=== PATIENT | male | born 1950 | race Caucasian/White ===

== ENCOUNTER 2020-12-12 11:18 | Emergency (ER) | payer OTHER, SELFPAY ==
[2020-12-12 11:22] VITALS: BP 154/88; PULSE 68; RESP 18; TEMP 36.4; O2SAT 99
--- NOTE | 2020-12-12 11:30 | DI.RAD.S_ITS ---
PROCEDURE: XR SHOULDER RT MIN 2V INDICATIONS: pain w/ movement and at rest. TECHNIQUE: 3 views of the shoulder were acquired. COMPARISON: None. FINDINGS: Bones: No fractures or dislocations. No suspicious bony lesions. Visualized ribs appear intact. Soft tissues: No suspicious soft tissue calcifications medially but there is a curvilinear calcification of significant size in the expected position of the lateral bursal space and lateral supraspinatus tendon at the right shoulder.. IMPRESSION: Calcific bursitis appears present, versus calcific tendonitis, at the lateral supraspinatus region of the right shoulder, upper-outer border of humeral head. The calcification of concern measures up to 2.6 cm oblique transverse and approximately 8-9 mm in thickness. Dictated by: Hussein Mccray M.D. on 12/12/2020 at 11:57 Approved by: Hussein Mccray M.D. on 12/12/2020 at 11:59
--- NOTE | 2020-12-12 12:57 | ED_ITS ---
HPI - Extremity Injury (Upper) <THELMA Lemus - Last Filed: 12/12/20 19:50> General Chief Complaint: Extremity Injury, Upper Stated Complaint: suspects torn muscles in right shoulder Time Seen by Provider: 12/12/20 12:04 Source: patient Mode of arrival: Ambulatory Limitations: no limitations History of Present Illness HPI narrative: This is a 70-year-old male, nonsmoker, has contributory medical history with same shoulder impingement presents to ED with right anterior shoulder joint pain radiating down to axilla which gradually started on Saturday evening and became worse on Saturday. Patient reports he had over work prior the pain before the pain started this past weekend. Patient was vacuumed and had carpet cleaned. He also went out riding motorcycle. He mowed the lawn and had difficult time starting a mower and had to pulled the starter cord several times. Patient initially used heat without improvement. Yesterday he had use cool pack which initially helped but became more painful. Patient had used ibuprofen and Tylenol for pain. Patient had use shoulder immobilizer that patient has at home. Pain increases with any movements of the right arm. Denies decreased sensation or weakness of affected arm. Related Data Previous Rx's Medication Instructions Recorded lidocaine 1 patch TOPICAL DAILY PRN #30 ea 12/12/20 Allergies Allergy/AdvReac Type Severity Reaction Status Date / Time No Known Drug Allergies Allergy Verified 12/12/20 11:27 Review of Systems <THELMA Lemus - Last Filed: 12/12/20 19:50> Review of Systems Narrative: General: Denies fever, chills, fatigue, malaise, sweats. Respiratory: Denies dyspnea, cough, wheezing, hemoptysis, sputum. Cardiovascular: Denies chest pain, palpitations, orthopnea, edema. Gastrointestinal: Denies nausea, vomiting, abdominal pain, diarrhea, constipation, melena. Musculoskeletal: See HPI Skin: Denies rash, skin lesions, or other. Neurologic: Denies weakness, headache, numbness, change in speech, confusion, seizures, incoordination. Patient History <THELMA Lemus - Last Filed: 12/12/20 19:50> Social History Smoking Status: Never smoker Smoking Status: Never smoker alcohol intake frequency: 0-2 drinks per day Substance Use Type: does not use Exam <THELMA Lemus - Last Filed: 12/12/20 19:50> Narrative Exam Narrative: General appearance: well developed, well nourished, in no acute distress. Head: normocephalic, atraumatic, no scalp lesions, non-tender. ENT: Hearing grossly intact. Airway patent. Neck/Thyroid: neck supple, full range of motion, no visible masses or meningeal signs. No JVD, non-tender without lymphadenopathy. Skin: no suspicious rashes, lesions over visible areas. Warm and dry and appropriate color for ethnicity. Heart: no clubbing, no cyanosis, no edema. Lungs: Breathing even and unlabored. No stridor. No accessory muscles used. Able to speak in full sentences. Chest: normal shape and expansion. Abdomen: non-obese, non-distended. Neurologic: alert and oriented. Cognitive exam, [employer] and PNS grossly intact on informal exam. Psych: good eye contact, normal affect. Initial Vital Signs Initial Vital Signs: Vital Signs Temperature 97.6 F 12/12/20 11:22 Pulse Rate 68 12/12/20 11:22 Respiratory Rate 18 12/12/20 11:22 Blood Pressure 154/88 H 12/12/20 11:22 Pulse Oximetry 99 12/12/20 11:22 Extrem Right upper extremity: normal to inspection, no joint enlargement, shoulder/upper arm Details: tenderness Location: of the A-C joint, axillary nerve sensory function normal and abnormal ROM Details: pain with active ROM and pain with passive ROM; no swelling, no lacerations, no ecchymosis, no deformity and no unusual warmth and elbow/forearm Details: normal to inspection and normal ROM; no tenderness and no swelling Other: Normal deltoid muscle location and in size when compared to left arm <Bere Ferrell DO - Last Filed: 12/13/20 07:53> Initial Vital Signs Initial Vital Signs: Vital Signs Temperature 97.6 F 12/12/20 11:22 Pulse Rate 68 12/12/20 11:22 Respiratory Rate 18 12/12/20 11:22 Blood Pressure 154/88 H 12/12/20 11:22 Pulse Oximetry 99 12/12/20 11:22 Scores <ANITRA LemusP - Last Filed: 12/12/20 19:50> GCS Shruti coma scale eye opening: Spontaneous [place] coma scale verbal response: Orientated [place] coma scale motor response: Obey commands Shruti coma scale total score: 15 Course <ANITRA LemusP - Last Filed: 12/12/20 19:50> Orders Ordered: Discontinued Medications Ketorolac Tromethamine (Ketorolac 60 Mg/2 Ml Vial) 30 mg IM NOW ONE Stop: 12/12/20 12:57 Last Admin: 12/12/20 13:09 Dose: 30 mg Documented by: RUBÉN Lidocaine (Lidocaine Patch 1 Each Adh..Patch) 1 each TOP NOW ONE Stop: 12/12/20 12:57 Last Admin: 12/12/20 13:09 Dose: 1 each Documented by: RUBÉN Vital Signs Vital signs: Vital Signs - 8 hr 12/12/20 11:22 Temperature 97.6 F Pulse Rate 68 Respiratory Rate 18 Blood Pressure 154/88 H Pulse Oximetry 99 <Bere Ferrell DO - Last Filed: 12/13/20 07:53> Orders Ordered: Discontinued Medications Ketorolac Tromethamine (Ketorolac 60 Mg/2 Ml Vial) 30 mg IM NOW ONE Stop: 12/12/20 12:57 Last Admin: 12/12/20 13:09 Dose: 30 mg Documented by: RUBÉN Lidocaine (Lidocaine Patch 1 Each Adh..Patch) 1 each TOP NOW ONE Stop: 12/12/20 12:57 Last Admin: 12/12/20 13:09 Dose: 1 each Documented by: RUBÉN Vital Signs Vital signs: Vital Signs - 8 hr 12/12/20 11:22 Temperature 97.6 F Pulse Rate 68 Respiratory Rate 18 Blood Pressure 154/88 H Pulse Oximetry 99 MDM - Extremity Injury (Upper) <THELMA Lemus - Last Filed: 12/12/20 19:50> Differential Diagnosis Differential diagnosis: Likely other (shoulder impingement, bursitis) Medical Records Attestation: I reviewed the patient's medical records. Imaging Data XR-Shoulder RT: Radiologist's Impression: [address] [id number] ReportSigned Patient: Petr Rodriguez GMR#: [id number]: 1950cct:[id number]/Sex: 70 / MDate of Service: 12/12/20Loc: EDAccession Number: [id number] Procedure: XR shoulder RT min 2V Ordering Provider: Bere Ferrell D.O. PROCEDURE: XR SHOULDER RT MIN 2V INDICATIONS: pain w/ movement and at rest. TECHNIQUE: 3 views of the shoulder were acquired. COMPARISON: None. FINDINGS: Bones: No fractures or dislocations. No suspicious bony lesions. Visualized ribs appear intact. Soft tissues: No suspicious soft tissue calcifications medially but there is a curvilinear calcification of significant size in the expected position of the lateral bursal space and lateral supraspinatus tendon at the right shoulder.. IMPRESSION: Calcific bursitis appears present, versus calcific tendonitis, at the lateral supraspinatus region of the right shoulder, upper-outer border of humeral head. The calcification of concern measures up to 2.6 cm oblique transverse and approximately 8-9 mm in thickness. Dictated by: Hussein Mccray M.D. on 12/12/2020 at 11:57 Approved by: Hussein Mccray M.D. on 12/12/2020 at 11:59 MDM Narrative Medical decision making narrative: This is a 70-year-old gentleman who presents to ED with chief complain of right anterior shoulder pain radiating down to axilla for last 2-3 days which came on gradually after he overused by carpet cleaning, mowing the lawn and riding a motor cycle this weekend prior to onset of pain. Patient has intact sensation and distal pulses. Patient has limited active and passive range of motion due to discomfort. There is no rash, warmth, swelling around the joint. Xray test indicates calcific bursitis versus calcific tendinitis at the lateral supra supination is region of the right shoulder, upper outer border of humeral head. I discussed the findings with the patient and spouse. Advised rest for next a few days and use NSAIDS and Tylenol, Lidocaine patch, Volterene gel if elects to use topical instead of PO NSAIDS. Patient informed it is okay to use shoulder immobilizer for acute painful but advised to gentle stretching and exercise several times a day to prevent frozen shoulder. Return precautions discussed with patient and he carlitos balized understanding and agreement with the treatment plan. Discharge Plan Departure Patient Disposition: Home Clinical Impression: Acute shoulder pain Qualifiers: Laterality: right Qualified Code(s): M25.511 - Pain in right shoulder Instructions: DI for Bursitis Activity Restrictions/Additional Instructions: You have been diagnosed with [acute right anterior shoulder pain likely bursitis vs. tendonitis after overuse. ]. What to do: *Take your medications as directed. Please take [id number] Tylenol and or Motrin as needed for discomfort. Tylenol 650-1000 mg up to 3 times a day as needed for discomfort. Ibuprofen 400-600 mg up to 3 times a day as needed for pain with food to decrease GI irritations. You can use OTC Voltarene gel as needed instead of by mouth Ibuprofen if you have GI sensitivity. You can use Lidocaine patch as needed for pain. The patch stays on for 12 hours and off for 12 hours. You can use cool pack for next couple of days on affected site for 3 to 4 times a day for 20 minutes at a time. You can use sling/shoulder immobilizer but please remember to exercise and stretch several times a day to prevent frozen shoulder. If lidocaine patch is too expensive, you can purchase [id number] 4% lidocaine patch. *Follow up with your primary care provider in 2-3 days, call for an appointment. Let them know you were seen in the ED and that we asked you to be seen in follow up. *Return to ED if you have any new, worsening, or concerning symptoms, such as [fever, warmth/redness around shoulder joint, worsening pain, chest pain, breathing difficulty, unable to tolerate fluids or any acute concerns.]. Prescriptions: New lidocaine 5 % adhesive patch,medicated 1 patch topical DAILY PRN (Reason: pain) Qty: 30 RF: 0 Referrals: Dain Beasley MD [Primary Care Provider] - <Bere Ferrell DO - Last Filed: 12/13/20 07:53> Cosign ED Attending Osmany Attestation: I was immediately available in the department for consultation. Documentation has been reviewed. I agree with assessment and plan.
[2020-12-12] MEDS: KETOROLAC 60 MG/2 ML VIAL 30 MG IM (13:09)
[2020-12-12] MEDS: LIDOCAINE PATCH 1 EACH ADH..PATCH TOP (13:09)
== END 2020-12-12 13:29 | disposition home or self-care (01) ==
PROVIDERS: Emergency Provider Nurse Practitioner Family; PCP Family Medicine
DX: M25.511 Pain in right shoulder (principal)
CPT/HCPCS: 73030; 96372; 99283; 99284; J1885